=== PATIENT | male | born 1985 | race Caucasian/White ===

== ENCOUNTER 2018-03-30 12:19 | Emergency (ER) | payer MEDICAID ==
[2018-03-30] MEDS: KETOROLAC 30 MG INJ IM (13:02)
[2018-03-30 13:13] LABS: URINE PH (Dip) POC 6.5 (5.0-8.5)
[2018-03-30 13:13] LABS: URINE BLOOD (Dip) POC Trace-lysed (NEGATIVE); URINE GLUCOSE (Dip) POC Negative (NEGATIVE); URINE KETONES (Dip) POC Negative (NEGATIVE); URINE LEUKOCYTE EST (Dip) POC Negative (NEGATIVE); URINE NITRITE (Dip) POC Negative (NEGATIVE); URINE TOTAL PROTEIN POC Negative (NEGATIVE)
== END 2018-03-30 13:51 | disposition home or self-care (01) ==
LOC: FTE 12:19
DX: S23.3XXA Sprain of ligaments of thoracic spine, initial encounter (principal); X58.XXXA Exposure to other specified factors, initial encounter; Y92.9 Unspecified place or not applicable
CPT/HCPCS: 81003; 96372; 99284-25